=== PATIENT | female | born 1965 | race Hispanic/Latino ===

== ENCOUNTER 2016-07-18 10:01 | Outpatient (CLI) | payer MEDICAID ==
--- NOTE | 2016-07-20 10:39 | Mammography Report ---
BILATERAL BASELINE DIGITAL SCREENING MAMMOGRAM WITH CAD. FINDINGS: The breasts are heterogeneously dense. In the upper-outer quadrant of the left breast posteriorly, there is an ovoid shaped parenchymal density. This measures 1 cm in diameter. No architectural distortion is seen. The right breast is unremarkable. There are no suspicious calcifications. IMPRESSION: Left nodular asymmetry. BI-RADS CATEGORY: 0 = Needs additional imaging evaluation ACR BI-RADS MAMMOGRAPHIC CODES: 0 = Needs additional imaging evaluation; 1 = Negative; 2 = Benign; 3 = Probably benign; 4 = Suspicious; 5 = Malignant; 6 = Known biopsy-proven malignancy COMMENT: 1. Dense breast tissue, i.e., adenosis, fibrocystic changes, etc., may obscure an underlying neoplasm. 2. Approximately 10% of cancers are not detected with mammography. 3. A negative mammography report should not delay biopsy if a clinically suspicious mass is present. RECOMMENDATION: Spot compression images and ultrasound. COMMENT: Patient follow-up letters are generated by [employer].
== END 2016-07-18 10:02 | disposition home or self-care (01) ==
LOC: SPVWC 10:01
PROVIDERS: ATTEND Obstetrics & Gynecology
DX: Z12.31 Encounter for screening mammogram for malignant neoplasm of breast (principal)
CPT/HCPCS: 77067; G0202

== ENCOUNTER 2016-08-01 09:44 | Outpatient (CLI) | payer MEDICAID ==
--- NOTE | 2016-08-01 10:54 | Ultrasound Report ---
LEFT DIGITAL DIAGNOSTIC MAMMOGRAM and LEFT BREAST ULTRASOUND: 08/01/16 09:44:00 CLINICAL: Recalled for asymmetry. COMPARISON:07/18/16 screening FINDINGS: Spot compression MLO and CC views were performed and demonstrate a partially circumscribed irregular upper-outer mass. Ultrasound of the upper-outer left breast was performed and demonstrated an oval irregular solid hypoechoic mass at 1:30 o'clock 7 cm from the nipple. It measures 1.0 x 0.8 x 0.6 cm and correlates with the mammographic density. A partially collapsed cyst at 2 o'clock 7 cm from nipple measures 9 x 4 x 7 mm. IMPRESSION: A 1 cm solid mass at 1:30 o'clock. BI-RADS CATEGORY: 4--Suspicious RECOMMENDATION: Ultrasound guided needle core biopsy of the left breast. I discussed the findings and the recommendation for needle core biopsy of the left breast with the patient at the time of the examination. ACR BI-RADS MAMMOGRAPHIC CODES: 0 = Needs additional imaging evaluation; 1 = Negative; 2 = Benign; 3 = Probably benign; 4 = Suspicious; 5 = Malignant; 6 = Known biopsy-proven malignancy COMMENT: 1. Dense breast tissue, i.e., adenosis, fibrocystic changes, etc., may obscure an underlying neoplasm. 2. Approximately 10% of cancers are not detected with mammography. 3. A negative mammography report should not delay biopsy if a clinically suspicious mass is present. COMMENT: Patient follow-up letters are generated via our [employer] application.
== END 2016-08-01 09:45 | disposition home or self-care (01) ==
LOC: SPVWC 09:44
PROVIDERS: ATTEND Obstetrics & Gynecology
DX: N63 Unspecified lump in breast (principal)
CPT/HCPCS: 76642; G0206

== ENCOUNTER 2016-08-08 12:46 | Outpatient (CLI) | payer MEDICAID ==
--- NOTE | 2016-08-08 14:58 | Ultrasound Report ---
Left breast ultrasound-guided biopsy, marker placement, left mammogram: The patient presents with a focal 1 cm hypodensity in the 1:30 position. A lateral approach is utilized. Skin is cleansed with Betadine. 1% lidocaine used for local anesthesia. A 13-gauge guide is placed through which a 14-gauge disposable Bard biopsy spring loaded gun was used to take several samples of the lesion under ultrasound guidance. A marker was left in place and ultrasound guidance. The entrance site was bandaged. A two-view mammogram confirmed positioning of the marker. There were no patient or procedure complications. The patient was given followup instructions and discharged.
== END 2016-08-08 12:47 | disposition home or self-care (01) ==
LOC: SPVWC 12:46
PROVIDERS: ATTEND Obstetrics & Gynecology
DX: N63 Unspecified lump in breast (principal)
CPT/HCPCS: 19083; A4648; G0206; 88305